=== PATIENT | female | born 1950 | race Caucasian/White ===

== ENCOUNTER 2021-06-19 09:35 | Outpatient (CLI) | payer MEDICARE, OTHER | END 2021-06-19 09:36 | disposition home or self-care (01) | LOC: CSHWCC 09:35 | PROVIDERS: ATTEND Nurse Practitioner Family | DX: T81.89XD Other complications of procedures, not elsewhere classified, subsequent encounter (principal); L59.8 Other specified disorders of the skin and subcutaneous tissue related to radiation; E03.9 Hypothyroidism, unspecified; E78.2 Mixed hyperlipidemia; I97.2 Postmastectomy lymphedema syndrome; J45.909 Unspecified asthma, uncomplicated | CPT/HCPCS: 97139; 97607; G0463; 99203 ==

== ENCOUNTER 2021-06-26 09:44 | Outpatient (CLI) | payer MEDICARE, OTHER | END 2021-06-26 09:45 | disposition home or self-care (01) | LOC: CSHWCC 09:44 | PROVIDERS: ATTEND Nurse Practitioner Family | DX: T81.89XD Other complications of procedures, not elsewhere classified, subsequent encounter (principal); I97.2 Postmastectomy lymphedema syndrome; J45.909 Unspecified asthma, uncomplicated; E03.9 Hypothyroidism, unspecified; E78.2 Mixed hyperlipidemia; L59.8 Other specified disorders of the skin and subcutaneous tissue related to radiation | CPT/HCPCS: 97605 ==

== ENCOUNTER 2021-06-28 08:14 | Outpatient (CLI) | payer MEDICARE, OTHER | END 2021-06-28 08:15 | disposition home or self-care (01) | LOC: CSHWCC 08:14 | PROVIDERS: ATTEND Nurse Practitioner Family | DX: T81.89XD Other complications of procedures, not elsewhere classified, subsequent encounter (principal); I97.2 Postmastectomy lymphedema syndrome; L59.8 Other specified disorders of the skin and subcutaneous tissue related to radiation; J45.909 Unspecified asthma, uncomplicated; E03.9 Hypothyroidism, unspecified; E78.2 Mixed hyperlipidemia ==

== ENCOUNTER 2021-06-29 10:04 | Outpatient (CLI) | payer MEDICARE, OTHER | END 2021-06-29 10:05 | disposition home or self-care (01) | LOC: CSHWCC 10:04 | PROVIDERS: ATTEND Nurse Practitioner Family | DX: T66.XXXD Radiation sickness, unspecified, subsequent encounter (principal) | CPT/HCPCS: 97139; G0463; 99211 ==

== ENCOUNTER 2021-07-02 11:12 | Outpatient (CLI) | payer MEDICARE, OTHER | END 2021-07-02 11:13 | disposition home or self-care (01) | LOC: CSHWCC 11:12 | PROVIDERS: ATTEND Nurse Practitioner Family | DX: T81.89XD Other complications of procedures, not elsewhere classified, subsequent encounter (principal); T66.XXXD Radiation sickness, unspecified, subsequent encounter; I97.2 Postmastectomy lymphedema syndrome; J45.909 Unspecified asthma, uncomplicated; E03.9 Hypothyroidism, unspecified; E78.2 Mixed hyperlipidemia | CPT/HCPCS: 97607 ==

== ENCOUNTER 2021-07-09 09:47 | Outpatient (CLI) | payer MEDICARE, OTHER | END 2021-07-09 09:48 | disposition home or self-care (01) | LOC: CSHWCC 09:47 | PROVIDERS: ATTEND Nurse Practitioner Family | DX: T81.89XD Other complications of procedures, not elsewhere classified, subsequent encounter (principal); L59.8 Other specified disorders of the skin and subcutaneous tissue related to radiation; E03.9 Hypothyroidism, unspecified; E78.2 Mixed hyperlipidemia; I97.2 Postmastectomy lymphedema syndrome; J45.909 Unspecified asthma, uncomplicated | CPT/HCPCS: 97607 ==

== ENCOUNTER 2021-07-16 08:39 | Outpatient (CLI) | payer MEDICARE, OTHER | END 2021-07-16 08:40 | disposition home or self-care (01) | LOC: CSHWCC 08:39 | PROVIDERS: ATTEND Nurse Practitioner Family | DX: T81.89XD Other complications of procedures, not elsewhere classified, subsequent encounter (principal); L59.8 Other specified disorders of the skin and subcutaneous tissue related to radiation; E03.9 Hypothyroidism, unspecified; E78.2 Mixed hyperlipidemia; I97.2 Postmastectomy lymphedema syndrome; J45.909 Unspecified asthma, uncomplicated ==

== ENCOUNTER 2021-07-23 11:06 | Outpatient (CLI) | payer MEDICARE, OTHER | END 2021-07-23 11:07 | disposition home or self-care (01) | LOC: CSHWCC 11:06 | PROVIDERS: ATTEND Nurse Practitioner Family | DX: T81.89XD Other complications of procedures, not elsewhere classified, subsequent encounter (principal); L59.8 Other specified disorders of the skin and subcutaneous tissue related to radiation; E03.9 Hypothyroidism, unspecified; E78.2 Mixed hyperlipidemia; I97.2 Postmastectomy lymphedema syndrome; J45.909 Unspecified asthma, uncomplicated | CPT/HCPCS: 97607 ==

== ENCOUNTER 2021-07-30 10:53 | Outpatient (CLI) | payer MEDICARE, OTHER | END 2021-07-30 10:54 | disposition home or self-care (01) | LOC: CSHWCC 10:53 | PROVIDERS: ATTEND Nurse Practitioner Family | DX: T81.89XD Other complications of procedures, not elsewhere classified, subsequent encounter (principal); E03.9 Hypothyroidism, unspecified; E78.2 Mixed hyperlipidemia; I97.2 Postmastectomy lymphedema syndrome; J45.909 Unspecified asthma, uncomplicated; L59.8 Other specified disorders of the skin and subcutaneous tissue related to radiation ==

== ENCOUNTER 2021-08-06 09:50 | Outpatient (CLI) | payer MEDICARE, OTHER | END 2021-08-06 09:51 | disposition home or self-care (01) | LOC: CSHWCC 09:50 | PROVIDERS: ATTEND Nurse Practitioner Family | DX: T81.89XD Other complications of procedures, not elsewhere classified, subsequent encounter (principal); J45.909 Unspecified asthma, uncomplicated; E03.9 Hypothyroidism, unspecified; E78.2 Mixed hyperlipidemia; I97.2 Postmastectomy lymphedema syndrome; L59.8 Other specified disorders of the skin and subcutaneous tissue related to radiation | CPT/HCPCS: 97607 ==

== ENCOUNTER 2021-08-14 11:35 | Outpatient (CLI) | payer MEDICARE, OTHER | END 2021-08-14 11:36 | disposition home or self-care (01) | LOC: CSHWCC 11:35 | PROVIDERS: ATTEND Nurse Practitioner Family | DX: T81.89XD Other complications of procedures, not elsewhere classified, subsequent encounter (principal); I97.2 Postmastectomy lymphedema syndrome; L59.8 Other specified disorders of the skin and subcutaneous tissue related to radiation; J45.909 Unspecified asthma, uncomplicated; E03.9 Hypothyroidism, unspecified; E78.2 Mixed hyperlipidemia ==

== ENCOUNTER 2021-08-28 12:42 | Outpatient (CLI) | payer MEDICARE, OTHER | END 2021-08-28 12:43 | disposition home or self-care (01) | LOC: CSHWCC 12:42 | PROVIDERS: ATTEND Nurse Practitioner Family | DX: T81.89XD Other complications of procedures, not elsewhere classified, subsequent encounter (principal); E03.9 Hypothyroidism, unspecified; E78.2 Mixed hyperlipidemia; I97.2 Postmastectomy lymphedema syndrome; J45.909 Unspecified asthma, uncomplicated; L59.8 Other specified disorders of the skin and subcutaneous tissue related to radiation | CPT/HCPCS: 99212; G0463 ==